=== PATIENT | male | born 1985 | race Asian ===

== ENCOUNTER 2024-06-22 13:32 | Outpatient (CLI) | payer SELFPAY | END 2024-06-22 13:33 | disposition home or self-care (01) | LOC: FBOREF 13:33 | PROVIDERS: Visit Provider Family Medicine | DX: Z13.228 Encounter for screening for other metabolic disorders (principal); Z13.0 Encounter for screening for diseases of the blood and blood-forming organs and certain disorders involving the immune mechanism | CPT/HCPCS: 80048; 85025 ==

== ENCOUNTER 2024-06-28 08:32 | Day surgery (SDC) | payer BC, SELFPAY ==
[2024-06-28] VITALS (15 sets, daily range): BP systolic 112–175; BP diastolic 71–116; PULSE 58–79; RESP 12–20; TEMP 36.2–36.9; O2SAT 95–99; BMI 27.4
[2024-06-28] MEDS: 0.9 % SODIUM CHLORIDE 500 ML 500 ML 100 ML IV ×2 (09:05→11:45)
[2024-06-28] MEDS: SODIUM CHLORIDE 0.9 % (FLUSH) 10 ML SYRINGE IVF (09:05)
--- NOTE | 2024-06-28 09:21 | W.PM.H&PU ---
History & Physical Update History & Physical Update H&P Reviewed and patient assessed: No changes noted
--- NOTE | 2024-06-28 09:24 | SUR.PREOP ---
TIME?OUT:?0930 PT/RN/MDA?VERIFICATION?OF?SURGICAL?SITE,?PROCEDURE,?AND?CONSENT OBTAINED?PRIOR?TO?INVASIVE?PROCEDURE.
[2024-06-28] MEDS: fentaNYL 100 MCG/2 ML inj IVP (09:31)
[2024-06-28] MEDS: MIDAZOLAM HCL 1 MG/ML inj IVP (09:31)
--- NOTE | 2024-06-28 09:45 | SUR.PREOP ---
Patient states I want to keep my contacts in, i sleep with them
--- NOTE | 2024-06-28 09:46 | W.PM.NB ---
Nerve Block Nerve Block Time Seen by Provider: 09:34 Date Seen: 06/28/24 Type of block requested by surgeon for post-operative analgesia: popliteal Side: left Time out performed: Yes Verification of patient name: Yes Verification of date of : Yes Site marking: site marked Name of person performing procedure: Diony Continuous monitoring Was continuous monitoring of O2 sat, B/P, environmental monitoring technician, recorded every 15 minutes?: Yes Procedure Checklist: sterile prep, needles and gloves Ultrasound guided. Images saved: Yes Medications given in 5ml increments after negative aspiration: Marcaine %: 0.25 mL: 20 Needle gauge: 22 Patient tolerated procedure well: Yes Additional comments: Needle noted adjacent to nerve Block Charges Block Charge (with Pro Fee): Sciatic Nerve Use of Ultrasound Machine for Block: Yes- US Guidance/pain block
[2024-06-28] MEDS: CEFAZOLIN 2 GM in 0.9 % SODIUM CHLORIDE Mini-bag 100 ML IVPB (10:25)
--- NOTE | 2024-06-28 11:53 | PM.ORPRC ---
Procedure Note Date of procedure: 06/28/24 Procedure: PREOPERATIVE DIAGNOSES: 1. Left Achilles tendon rupture, acute, closed POSTOPERATIVE DIAGNOSES: 1. Left Achilles tendon rupture, acute, closed NAME OF OPERATION: 1. Left Achilles tendon repair using PARS (percutaneous) device (all suture repair) SURGEON: Jin Mansfield MD TIRE BUILDING SUPERVISOR: Wilmer Ornelas PA-C; Of note, an assistant portfolio manager was critical for this case to aide in patient positioning, leg manipulation, tissue retraction, closure, patient safety & splinting. ANESTHESIA: General plus popliteal block EBL: 2ml IMPLANTS: All suture repair (no anchors) TOURNIQUET: 50 min at 300 torr. INDICATIONS: The patient is a pleasant 38-year-old male who sustained a left Achilles tendon rupture while playing basketball. He thought someone had kicked him in the back of his heel. He had difficulty walking and jumping thereafter. He waited roughly 10 days before seeking medical care as he thought it was simply a bruise. Thereafter, workup included an MRI which revealed a complete Achilles tendon rupture with retraction proximally. Given the patient's desire to remain physically active, particular with explosive sports such as basketball, surgery was recommended. FINDINGS: Closed, achilles tendon rupture. Hemorrhage was encountered after penetrating the paratenon. The Achilles indeed had migrated proximally, and the ends of the tendon were frayed like a mop end. PROCEDURE: Following a thorough discussion of risks, benefits, and alternatives, consent was obtained and the left Achilles was marked. The patient was brought to the operating room and placed supine on the operating table. Induction of anesthesia was undertaken. Appropriate time out was performed identifying proper patient, site and procedure. 2 g IV Ancef was administered within 1 hour of incision preoperatively. The left lower extremity was prepped and draped in the appropriate sterile fashion using ChloraPrep prep after the patient had been positioned prone with all bone prominences well padded, and soft anatomic prominences free from pressure. The limb was exsanguinated and the tourniquet inflated. A transverse incision was made overlying the palpable gap in the Achilles tendon which ended up being approximately 6-7 cm proximal to the Achilles insertion on the posterior calcaneus. Sharp incision through skin and subcutaneous tissue, while protecting any crossing neurologic structures, was performed allowing the paratenon to be identified. This was also divided transversely, and indeed hemorrhage was encountered. The tendon ends were identified, and freshen. The tendon was also freed from adhesions proximally circumferentially. Following this, the PARS device was inserted within the paratenon, and around the tendon itself. 7 different needles/sutures were passed according to the technique guide. SutureTape sutures were utilized and looped underneath and through the locking cross stitches accordingly, and these were passed. The sutures were tugged on and found have an excellent control of the proximal Achilles tendon stump. As the rupture was more proximal, it left us with the long tendon stump distal. Therefore, all suture repair was selected. This same steps were utilized on the distal tendon stump. As the needles passed through the tendon, it was felt to have good density through the tissue confirming that we were in the tendon. Additionally, after passing and looping and cinching all of the various sutures, it had excellent control of the distal stump just as much as the proximal stump. After passing sutures, the foot was placed in maximum plantar flexion, and the sutures were tied/secured together with excellent control of the foot. Mascorro sign was restored to normal. The foot remained in a plantigrade fashion at this time. A thorough irrigation with normal saline was performed and closure, which was performed in layered fashion with #0 Vicryl for the paratenon, #2 Stratafix and 4-0 Stratafix for the subcutaneous and subcuticular layers, respectively, was completed. Dermabond was applied, dressing applied, and a posterior splint applied with the foot in maximum plantar flexion. The patient was woken by anesthesia and transferred to PACU in stable condition. PLAN: 1. Elevate operative extremity. 2. Encouraged ice. 3. Oxycodone for pain as needed. 4. Follow up with PA visit in 7-10 days for splint removal and wound check. Initiate weight-bearing as tolerated in the Cam boot with heel lifts as needed. If that is 1 heel lift or 2 lifts or even 3. He might need a new boot if his current cam boot does not have heel lifts. 5. Toe touch Weightbear operative extremity at this time.
--- NOTE | 2024-06-28 12:28 | P.ANES_ITS ---
Anesthesia Charges Start Date/Time Anesthesia Start Date: 06/28/24 Anesthesia Start Time: 10:10 Stop Date/Time Anesthesia Stop Date: 06/28/24 Anesthesia Stop Time: 12:23 Coding CPT Codes CPT Codes: ANESTH ACHILLES TENDON SURG - 80522 ([id number]) P1 - NORMAL HEALTHY PATIENT, QK - VETERINARY MILK SPECIALIST 2-4 CNCRNT ANES PROC, QX - MATERIALS MANAGER SVBrenden W/ MED DIRECTION
--- NOTE | 2024-06-28 12:28 | W.ANESCHARGE ---
Anesthesia Charges Start Date/Time Anesthesia Start Date: 06/28/24 Anesthesia Start Time: 10:10 Stop Date/Time Anesthesia Stop Date: 06/28/24 Anesthesia Stop Time: 12:23 Coding CPT Codes CPT Codes: ANESTH ACHILLES TENDON SURG - 88035 ([id number]) P1 - NORMAL HEALTHY PATIENT, QK - PARTS ADVISOR 2-4 CNCRNT ANES PROC, QX - ENVIRONMENTAL SUSTAINABILITY MANAGER SVBrenden W/ MED DIRECTION
--- NOTE | 2024-06-28 12:52 | SUR.PHASEI ---
patient met discharge criteria per anesthesia
--- NOTE | 2024-06-28 13:16 | P.ANES_ITS ---
Anesthesia Charges Start Date/Time Anesthesia Start Date: 06/28/24 Anesthesia Start Time: 10:10 Stop Date/Time Anesthesia Stop Date: 06/28/24 Anesthesia Stop Time: 12:23 Coding CPT Codes CPT Codes: ANESTH ACHILLES TENDON SURG - 05720 ([id number]) QK - COMMUNICATIONS INTERN 2-4 CNCRNT ANES PROC, QX - MACHINE TECHNICIAN SVC W/ MD MED DIRECTION, P1 - NORMAL HEALTHY PATIENT
--- NOTE | 2024-06-28 13:16 | W.ANESCHARGE ---
Anesthesia Charges Start Date/Time Anesthesia Start Date: 06/28/24 Anesthesia Start Time: 10:10 Stop Date/Time Anesthesia Stop Date: 06/28/24 Anesthesia Stop Time: 12:23 Coding CPT Codes CPT Codes: ANESTH ACHILLES TENDON SURG - 60675 ([id number]) QK - STRETCH BOX TENDER 2-4 CNCRNT ANES PROC, QX - FLYER MAKER SVC W/ MD MED DIRECTION, P1 - NORMAL HEALTHY PATIENT
== END 2024-06-28 13:30 | disposition home or self-care (01) ==
LOC: OR 08:33
PROVIDERS: Visit Provider Orthopaedic Surgery Sports Medicine
PROC: (CPT 27650; principal; 2024-06-28 09:30)
DX: S86.012A Strain of left Achilles tendon, initial encounter (principal); G89.18 Other acute postprocedural pain
CPT/HCPCS: 27650; 01472; 64445; 76942; C1713; J0330; J0665; J0690; J2250; J2405; J2704; J3010; J7030

== ENCOUNTER 2024-08-03 15:15 | Outpatient (RCR) | payer BC, SELFPAY | END 2024-12-01 23:59 | disposition home or self-care (01) | PROVIDERS: Visit Provider Orthopaedic Surgery Sports Medicine | DX: S86.012A Strain of left Achilles tendon, initial encounter (principal); Z98.890 Other specified postprocedural states; M25.572 Pain in left ankle and joints of left foot; Z51.89 Encounter for other specified aftercare | CPT/HCPCS: 97110; 97140; 97161 ==